=== PATIENT | female | born 1960 | race Hispanic/Latino ===

== ENCOUNTER 2016-11-16 16:34 | Inpatient (IN) | payer BC ==
[2016-11-16 16:35] VITALS: BMI 35.5
[2016-11-16] MEDS ORDERED: Sodium Chloride 0.9% 1,000 ML IV STA (17:32)
[2016-11-16 17:59] LABS: ADD MANUAL DIFF? NO
[2016-11-16 18:02] LABS: BASO # 0.02 K/mm3 (0.0-2.0); BASO % 0.2 % (0.0-3.0); EOS # 0.4 (0.0-0.7); EOS % 3.5 % (1.5-5.0); GRAN # 7.48 (1.4-6.5); GRAN % 75.5 % (50.0-68.0); HEMATOCRIT 42.8 % (36.0-48.0); LYMPH # 1.4 (1.2-3.4); LYMPH % 14.4 % (22.0-35.0); MEAN CELL VOLUME 86.6 fL (80.0-105.0); MEAN CORPUSCULAR HEMOGLOBIN 28.5 pg (25.0-35.0); MEAN CORPUSCULAR HGB CONC 32.9 g/dl (31.0-37.0); MEAN PLATELET VOLUME 10.4 fl (7.0-11.0); MONO # 0.6 (0.1-0.6); MONO % 6.4 % (1.0-6.0); PLATELET COUNT 282 10^3/uL (120.0-450.0); RED CELL DISTRIBUTION WIDTH 14.8 % (11.5-14.5); WHITE BLOOD COUNT 9.9 10^3/ul (4.5-11.0)
[2016-11-16 18:12] LABS: INR 1.02 (0.93-1.08); PARTIAL THROMBOPLASTIN TIME 30.2 Seconds (23.7-30.8)
[2016-11-16 18:18] LABS: ALB/GLOB RATIO 0.9 (1.1-1.8); ALKALINE PHOSPHATASE 169 U/L (38-133); ALT/SGPT 55 U/L (7-56); AST/SGOT 55 U/L (15-39); BILIRUBIN,TOTAL 1.1 mg/dL (0.2-1.3); BLOOD UREA NITROGEN 20 mg/dL (7-21); CALCIUM 10.3 mg/dL (8.4-10.5); CARBON DIOXIDE 12 mmol/L (21-33); CHLORIDE 115 mmol/L (98-107); GFR AFRICAN-AMERICAN 37; GLUCOSE,RANDOM 111 mg/dL (70-110); POTASSIUM 3.7 mmol/L (3.6-5.0); SODIUM 143 mmol/L (132-148); TOTAL PROTEIN 9.9 g/dL (5.8-8.3)
[2016-11-16] MEDS ORDERED: Sodium Chloride 0.9% 1,000 ML IV SCH (18:30)
[2016-11-16 18:32] LABS: TROPONIN I < 0.01 ng/mL
--- NOTE | 2016-11-16 18:32 | ED PDOC ---
Arrival/HPI - General Chief Complaint: GI Problem Time Seen by Provider: 11/16/16 16:36 Historian: Patient - History of Present Illness Narrative History of Present Illness (Text): 11/16/16 19:12 Molly Johnson, a 56 year old female, whose past medical history includes Crohn' s disease, presents to the emergency department complaining of generalized weakness that developed today, as well as feeling dizzy as if she might pass out when she stands or exerts herself. Patient reports that over the past five days she has been having "diarrhea" in her colostomy bag which she describes as "liquid that looks like urine" "every time I eat or drink something it runs right through me. Patient DENIES chest pain or abdominal pain. Denies bloody or dark stool in her colostomy. She has been urinating but "not as much today". Denies chest pain or shortness of breath. She also reports weight loss over the past two weeks. Denies recent antibiotic use aside from Flagyl which she has been taking chronically for several months. Time/Duration: Other (today) Symptom Onset: Sudden Symptom Course: Unchanged Activities at Onset: Rest Context: Home Associated Symptoms (Text): dizziness, loose stools Past Medical History - Provider Review Nursing Documentation Reviewed: Yes - Infectious Disease Hx of Infectious Diseases: None - Tetanus Immunization Tetanus Immunization: Unknown - Reproductive Menopause: Yes - Musculoskeletal/Rheumatological Hx Falls: No - Gastrointestinal Hx Crohn's Disease: Yes - Psychiatric Hx Depression: No Hx Emotional Abuse: No Hx Physical Abuse: No Hx Substance Use: No - Anesthesia Hx Anesthesia: Yes Hx Anesthesia Reactions: No Hx Malignant Hyperthermia: No - Suicidal Assessment Feels Threatened In Home Enviroment: No Family/Social History - Physician Review Nursing Documentation Reviewed: Yes Family/Social History: No Known Family HX Smoking Status: Never Smoked Hx Alcohol Use: No Hx Substance Use: No Hx Substance Use Treatment: No Allergies/Home Meds Allergies/Adverse Reactions: Allergies levofloxacin [From Levaquin] Adverse Reaction (Verified 11/16/16 16:56) PAIN Home Medications: Home Meds Medication Instructions Recorded Confirmed metroNIDAZOLE [Flagyl] 250 mg PO DAILY 05/02/13 11/16/16 Azathioprine [Imuran] 50 mg PO DAILY 09/05/13 11/16/16 Potassium Chloride [Potassium 20 meq PO DAILY 06/16/14 11/16/16 Chloride] Pantoprazole Sodium [Protonix] 40 mg PO DAILY 11/16/16 11/16/16 Review of Systems - Review of Systems Constitutional: Fatigue, Other (generalized weakness) Eyes: absent: Vision Changes Respiratory: absent: SOB, Cough Cardiovascular: absent: Chest Pain Gastrointestinal: Stool Changes (loose stools), Appetite Changes. absent: Abdominal Pain, Nausea, Vomiting, Hematochezia Genitourinary Female: Urine Output Changes. absent: Dysuria, Vaginal Bleeding Musculoskeletal: absent: Back Pain, Neck Pain Skin: absent: Rash Neurological: Dizziness. absent: Headache, Focal Weakness Endocrine: absent: Polyuria Hemo/Lymphatic: absent: Easy Bleeding Physical Exam - Physical Exam Narrative Physical Exam (Text): 11/16/16 19:16 Head: Atraumatic. Normocephalic. Eyes: PERRL. EOMI. Conjunctivae are not pale. ENT: Mucous membranes are dry. Oropharynx is clear and symmetric. Neck: Supple. Full ROM. No JVD. No lymphadenopathy. Cardiovascular: Regular rate. Regular rhythm. No murmurs, rubs, or gallops. Distal pulses are intact. Pulmonary/Chest: No evidence of respiratory distress. Clear to auscultation bilaterally. No wheezing, rales or rhonchi. Abdominal: Soft and non-distended. There is no tenderness. No rebound, guarding, or rigidity. Normoactive bowel sounds. Colostomy with green stool, loose. No surrounding edema or erythema around colostomy. There is soft and reducible hernia. Back: No CVA tenderness. No midline tenderenss. Extremities: No edema. No cyanosis. No clubbing. Full range of motion in all extremities. No calf tenderness. Skin: Skin is warm and dry. No petechiae. No purpura. Neurological: Alert, awake, and oriented. Normal speech. Motor and sensory exam intact. No meningeal signs. Motor and sensory exam intact. Psychiatric: Good eye contact. Normal interaction, affect, and behavior. Vital Signs Reviewed: Yes Vital Signs Temp Pulse Resp BP Pulse Ox 11/16/16 20:21 98.3 F 96 H 18 153/78 H 100 11/16/16 16:48 98.5 F 119 H 20 144/97 H 96 Temperature: Afebrile Blood Pressure: Hypertensive Pulse: Tachycardic Respiratory Rate: Normal Appearance: Positive for: Well-Appearing, Non-Toxic, Comfortable Pain Distress: None Mental Status: Positive for: Alert and Oriented X 3 Finger Stick Blood Glucose: 111 Medical Decision Making ED Course and Treatment: 11/16/16 19:17 Impression: A 56 year old female with generalized weakness after several days of loose stools. Differential Diagnosis include but are not limited to: dehydration, electrolyte distubance, colitis Plan: -- EKG -- Urinalysis -- labs -- IV fluids -- Reassess and disposition Prior Visits: Notes and results from previous visits were reviewed. Patient was last reported to emergency department on 06/16/14 for evaluation of worsening abdominal pain. Patient was hospitalized and cleared for gastroenterology and infectious disease. She was recommended outpatient follow up, to continue medications and follow up with fnps. Patient was discharged on 06/19/14. Progress Notes: Patient on examination has no abdominal pain by history or on exam. On palpation she has no abdominal pain, no focal rebound or guarding. Patient has no bloody stool noted. On re-exam, not tachycardic. Not hypotensive. No associated chest pain or shortness of breath. No focal neuro deficits. No new recent antibiotic usage. IV fluids initiated. Cr elevated when compared to previous. She is noted to have CO2 of 12. K level unremarkable initially. Suspect dehydration, given history of Chrohn's will admit for serial abdominal exams, monitoring of electrolytes and renal consultation. Case d/w Dr. Jones, who has communicated with Dr. Lim, renal. Treatment plan reviewed with patient and family. EKG: at 17:41 sinus tachycardia rate of [address] elevations 11/16/16 22:12 - Lab Interpretations Lab Results: 11/16/16 17:50 11/16/16 17:50 Lab Results 11/16/16 17:50: Sodium 143, Potassium 3.7, Chloride 115 H, Carbon Dioxide 12 L, Anion Gap 20, BUN 20, Creatinine 1.7 H, Est GFR ( Amer) 37, Est GFR (Non- Af Amer) 31, Random Glucose 111 H, Calcium 10.3, Total Bilirubin 1.1, AST 55 H, ALT 55, Alkaline Phosphatase 169 H, Lactate Dehydrogenase 560, Total Creatine Kinase 87, Troponin I < 0.01, Total Protein 9.9 H, Albumin 4.7, Globulin 5.2, Albumin/Globulin Ratio 0.9 L 11/16/16 17:50: PT 11.0, INR 1.02, APTT 30.2 11/16/16 17:50: WBC 9.9 D, RBC 4.94, Hgb 14.1, Hct 42.8, MCV 86.6, MCH 28.5, MCHC 32.9, RDW 14.8 H, Plt Count 282, MPV 10.4, Gran % 75.5 H, Lymph % (Auto) 14.4 L, Stone % (Auto) 6.4 H, Eos % (Auto) 3.5, Baso % (Auto) 0.2, Gran # 7.48 H , Lymph # 1.4, Stone # 0.6, Eos # 0.4, Baso # 0.02 I have reviewed the lab results: Yes - EKG Interpretation Interpreted by ED Physician: Yes Type: 12 lead EKG - Medication Orders Current Medication Orders: Sodium Bicarbonate 75 meq/Potassium Chloride 20 meq/Sodium Chloride 1,085 mls @ 80 mls/hr IV .[id number] [facility] Stop: 11/17/16 20:46 Last Admin: 11/16/16 21:35 Dose: 80 mls/hr Discontinued Medications Sodium Chloride (Sodium Chloride 0.9%) 1,000 mls @ 1,000 mls/hr IV .Q1H [facility] Stop: 11/16/16 18:31 Last Admin: 11/16/16 17:58 Dose: 1,000 mls/hr Sodium Chloride (Sodium Chloride 0.9%) 1,000 mls @ 100 mls/hr IV .Q10H [facility] Last Admin: 11/16/16 20:00 Dose: 100 mls/hr - Scribe Statement The provider has reviewed the documentation as recorded by the Scribcornelio Tarango All medical record entries made by the Stephanieibcornelio were at my direction and personally dictated by me. I have reviewed the chart and agree that the record accurately reflects my personal performance of the history, physical exam, medical decision making, and the department course for this patient. I have also personally directed, reviewed, and agree with the discharge instructions and disposition. Disposition/Present on Arrival - Present on Arrival Any Indicators Present on Arrival: No History of DVT/PE: No History of Uncontrolled Diabetes: No Urinary Catheter: No History of Decub. Ulcer: No History Surgical Site Infection Following: None - Disposition Have Diagnosis and Disposition been Completed?: Yes Diagnosis: Dehydration, Renal insufficiency Disposition: HOSPITALIZED Disposition Time: 19:30 Patient Plan: Admission Condition: FAIR
[2016-11-16 20:53] LABS: URINE BILIRUBIN NEGATIVE (NEGATIVE); URINE BLOOD SMALL (NEGATIVE); URINE GLUCOSE (UA) NEGATIVE (NEGATIVE); URINE KETONE NEGATIVE (NEGATIVE); URINE LEUKOCYTE ESTERASE SMALL Leu/uL (NEGATIVE); URINE PROTEIN 100 mg/dL (<30 mg/dL); URINE UROBILINOGEN 0.2 E.U./dL (<1 E.U./dL)
[2016-11-16 21:00] LABS: URINE APPEARANCE CLEAR (CLEAR); URINE COLOR YELLOW (YELLOW)
[2016-11-16 21:31] LABS: URINE BACTERIA MOD (NEG)
[2016-11-16] MEDS: [UNRECOGNIZED DRUG - OTHER] IV SCH (21:35)
[2016-11-16] MEDS: SODIUM BICARBONATE IV SCH (21:35)
[2016-11-16] MEDS: POTASSIUM CHLORIDE IV SCH (21:35)
[2016-11-17 07:42] LABS: ALB/GLOB RATIO 0.9 (1.1-1.8); BILIRUBIN,TOTAL 1.2 mg/dL (0.2-1.3); CALCIUM 9.1 mg/dL (8.4-10.5); POTASSIUM 3.4 mmol/L (3.6-5.0)
[2016-11-17] MEDS: Pantoprazole 40 mg EC Tab PO SCH (10:10)
--- NOTE | 2016-11-17 10:23 | CARD ---
APPROVED REPORT EKG Measurement Heart [id number] <Conclusion> Sinus tachycardia Minimal voltage criteria for LVH, may be normal variant Septal infarct, age undetermined Abnormal ECG
--- NOTE | 2016-11-17 10:32 | HP ---
HISTORY OF PRESENT ILLNESS: This is a 56-year-old female who presents to [facility] as s he was referred after giving a history of at least 4-5 days of loose watery stools. The patient has a colostomy in the left lower quadrant with a past medical history of Crohn's disease and a history o f a colovesical fistula. She had a temp of 98.5, a pulse of 119, her blood pressure was 144/97, her oxygen saturation was 96% on room air. SOCIAL HISTORY: She is a nonsmoker, nondrinker, nondrug user. ALLERGIES: THERE IS AN ALLERGY TO LEVAQUIN. ACTIVE MEDICATIONS: Consist of Imuran 50 mg daily, Protonix 40 mg daily. She is on sodium bicarbona te with potassium chloride, IV fluids. HOME MEDICATIONS: Consist of Imuran 50 mg daily, Protonix 40 mg daily, potassium chloride 20 mEq cheryle ly and Flagyl 250 mg daily. REVIEW OF SYSTEMS: Twelve systems are reviewed. Pertinent findings is that the colostomy bag has so me liquidy stool present. She denies any pain. PHYSICAL EXAMINATION: NECK: Supple. LUNGS: Clear. HEART: Has an S1, S2 rhythm. ABDOMEN: Soft, scaphoid with positive bowel sounds. There is a colostomy in the left lower quadrant . EXTREMITIES: Show no evidence of edema. NEUROLOGIC: She is alert and oriented x 3. LABORATORY DATA: Shows a WBC of 9.9, RBC 4.94, hemoglobin 14, hematocrit 42.8, platelet count is 282 . PT is 11 with an INR 1.02, PTT is 30.2. Chemistry shows a sodium 143, potassium 3.7, chloride 115 , CO2 is 12. The BUN is 20, the creatinine is 1.7. Her AST is 55, her ALT is normal, the alkaline p hosphatase is 169. Troponin is less than 0.01. LDH is 560. Her calcium is 10.3. Urinalysis shows yeast with moderate bacteria and positive leukocyte esterase. The patient is comfortable at this time in bed. She is going to be seen by GI. Stool for C. diff duenas s been requested, and she has been placed on a liquid diet. Leandra Jones MD cc: [id number] TT: 11/17/2016 10:32:01 mn
[2016-11-17] MEDS ORDERED: Potassium Chloride 20 mEq ER Tab PO ONE (10:47)
[2016-11-17] MEDS: [UNRECOGNIZED DRUG - OTHER] IV SCH (12:00)
[2016-11-17] MEDS: POTASSIUM CHLORIDE IV SCH (12:00)
[2016-11-17] MEDS: SODIUM BICARBONATE IV SCH (12:00)
[2016-11-17] MEDS: Potassium Chloride 20 mEq ER Tab PO SCH (18:26)
--- NOTE | 2016-11-17 18:36 | CON ---
DATE: 11/17/2016 REASON FOR CONSULTATION: Acute kidney injury, hypokalemia, acidosis. HISTORY OF PRESENTING ILLNESS: A 56-year-old young woman, previously unknown to me, was sent to the Emergency Room at the direction of the PMD because of complaints of increased watery stools via the c olostomy. The patient gives a history of increased affluent/watery stools from the colostomy for the past 5 days. Stool was almost like colorless and very liquid. She denies any abdominal pain. She denies any nausea, vomiting. She denies any fever or chills. She gives a history of Crohn's disease , colostomy done 2 years ago, colovesical fistula. She also gives a history of an episode of acute k idney injury 2 years ago. In the Emergency Room she was found to have acute kidney injury. Her BUN was found to be 20 and a cr eatinine of 1.7. Her baseline creatinine 1.1. She was also found to have acidosis. Her CO2 w as 12. Hence, consultation was requested. PAST MEDICAL AND SURGICAL HISTORY: No history of hypertension. No diabetes, no history of heart dis ease. History of Crohn's disease, history of laparotomy x 2, partial bowel resection, colostomy 2 ye ars ago, colovesical fistula, episode of acute kidney injury, gastroenteritis, dehydration. FAMILY HISTORY: Noncontributory. SOCIAL HISTORY: No smoking, no alcohol use, no IV drug abuse. ALLERGIES: LEVAQUIN. MEDICATIONS AT HOME: Included Imuran 50 mg daily, Protonix, potassium chloride, Flagyl 250 mg daily. REVIEW OF SYSTEMS: All systems are reviewed, pertinent positives as mentioned in the history of pres enting illness, rest unremarkable. PHYSICAL EXAMINATION: GENERAL: Obese, middle-aged lady lying in bed, in no acute distress. VITAL SIGNS: Blood pressure 128/77, heart rate 90, respiratory rate 20, temperature 98.5. HEENT: Normocephalic, atraumatic, positive pallor, no icterus. NECK: Supple, no JVD. LUNGS: Bilateral equal air entry. CARDIAC: S1, S2, regular rate and rhythm, no murmur, no rub. ABDOMEN: Obese, distended, soft, left-sided colostomy with brownish liquid stool. Bowel sounds pres ent. EXTREMITIES: No lower extremity edema. LABORATORY DATA: WBC 9.9, hemoglobin 14, hematocrit 43, platelets 282. Sodium 141, potassium 3.4, c hloride 112, CO2 17, BUN 18, creatinine 1.5, glucose 99, calcium 9.1, AST 36, ALT 47, albumin 3.8. ASSESSMENT AND PLAN: 1. Acute kidney injury, prerenal azotemia. 2. Anion gap metabolic acidosis secondary to acute kidney injury and increased losses. 3. Hypokalemia. 4. Dehydration. 5. History of Crohn's disease/colostomy. PLAN: 1. Continue IV fluids with bicarb and potassium. 2. Check magnesium levels. 3. Oral potassium 40 mEq x 1 dose. 4. Potassium 20 mEq b.i.d. 5. Sodium bicarbonate 650 mg b.i.d. 6. Push clear fluids. 7. Needs outpatient followup. Thank you for the courtesy of this consultation. We will follow this patient closely with you. Deanna Lim MD cc: [id number] TT: 11/17/2016 18:35:46 Confirmation # [id number] Dictation # [id number] mn
--- NOTE | 2016-11-17 18:47 | CON ---
DATE: 11/17/2016 Seen and examined at the bedside early today. REQUEST FOR CONSULTATION: Diarrhea, history of colovaginal fistula. HISTORY OF PRESENT ILLNESS: This is a 56-year-old female with a history of Crohn's disease and history of colovesicular fistula. The patient had surgery about 2 years ago with left lower quadrant colostomy now. The patient had the surgery 2 years ago done in [facility]. She comes to the Emergency Room with complaints of increased watery stools that started having diarrhea for the past 5 days. She states that she has had an increase in emptying her colostomy bag. Normally on a regular day she empties her colostomy bag 6 times and now she has noticed it is at least 20 times. The patient states that she is on prophylactic Flagyl, she takes 1 tablet daily. She has been on Flagyl since the surgery as per her GI doctor in [facility]. She denies any new recent antibiotic use except for the Flagyl. She did state that her grandchildren were sick with diarrhea and vomiting. Denies any contributory foods. No reports of any bleeding. Her last endoscopy and colonoscopy were 2 years ago prior to her surgery. Denies any weight loss or loss of appetite. No fever or chills, shortness of breath or chest pain. PAST MEDICAL HISTORY: As stated above, the Crohn's disease and history of colovesicular fistula with colostomy. ALLERGIES: LEVAQUIN. MEDICATIONS: Reviewed as per MAR. SOCIAL HISTORY: Denies smoking, EtOH, or substance abuse. REVIEW OF SYSTEMS: Systems reviewed with positive findings, see HPI. VITAL SIGNS: Temperature is 98.5, blood pressure is 128/77, pulse is 90, respirations 20, 97 on room air. LABORATORY WORK: WBC is 9.9, H and H are 14.1 and 42.8, platelets of 282. PT is 11.0, INR is 1.02, PTT is 30.2. Sodium 141, K is 3.4, BUN is 18, creatinine is 1.5, total bilirubin is 1.2, AST 36, ALT 47, alk phos is 151. Urinalysis is small leukocyte esterase, small blood. Stool for C. diff was sent and that was negative for antigen and toxin. PHYSICAL EXAMINATION: HEENT: Sclerae are anicteric. NECK: Supple. CARDIAC: S1, S2. LUNGS: Clear. ABDOMEN: With bowel sounds, soft, it was nontender. She has a left lower colostomy bag with liquid light brown stool. No blood is noted. EXTREMITIES: Positive pedal pulses, no edema, no calf tenderness. NEUROLOGIC: Awake, alert, and oriented. ASSESSMENT/PLAN: This is a 56-year-old female with the history of Crohn's disease and history of colovesicular fistula status post left lower quadrant colostomy, comes with complaints of diarrhea, may be secondary to viral gastroenteritis. Her stool for C. diff was negative. The patient had contact with the grandkids that were sick with diarrhea and vomiting, likely like a viral gastroenteritis. Dehydration secondary to diarrhea with CAESAR. The patient will continue IV hydration, replace the potassium as necessary. She is on PPI and currently on a liquid diet. Consider advancing as tolerated. Her stool culture is pending as well as a urine culture. Thank you for this consult and for allowing us to participating in your patient' s care. We will make further recommendations based upon patient's clinical course. The patient was seen and case discussed with Dr. Ken. Maria E CORONA cc: [id number] TT: 11/17/2016 18:46:22 Confirmation # [id number] Dictation # [id number] mn ELAINE
[2016-11-17 21:16] VITALS: RESP 20
--- NOTE | 2016-11-17 21:21 | CON ---
DATE: 11/17/2016 ADDENDUM This is an addendum to the GI consultation report dictated by Maria E Gallagher NP. The patient was seen and evaluated. History of Crohn's disease with fistula. The patient has been on long-term treatment with Imuran and Flagyl. 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 Has an acute episode of diarrhea. Clinically, it is more suggestive of acute gastroenteritis on top of the Crohn's disease. The patient did have acute kidney injury, probably secondary to the dehydration also. The patient has been now hydrated and the renal function has been improving and th e also has improved. The plan is to continue the clear liquid diet and slowly increase the t in the a.m. The patient to be followed as an outpatient by his track mechanic in [facility]. Liv Ken MD cc: [id number] TT: 11/17/2016 21:21:07 Confirmation # [id number] Dictation # [id number] mn
--- NOTE | 2016-11-17 22:19 | PN ---
DATE: 11/17/2016 The patient is resting in bed comfortably. Nursing staff relates that there were no problems during the night. PHYSICAL EXAMINATION: VITAL SIGNS: Temp is 98.8, blood pressure is 139/86, oxygen saturation is 96% on room air with a res piratory rate of 20. GENERAL: The patient states that she is not having any abdominal pain and notes that the stool seems to becoming more formed in the colostomy bag. She is alert and oriented x 3. NECK: Supple. LUNGS: Clear. HEART: S1, S2 rhythm. ABDOMEN: Soft with positive bowel sounds. Colostomy in the left lower quadrant. EXTREMITIES: Show no evidence of edema. LABORATORY DATA: Shows a sodium 141, potassium 3.4, chloride 112, CO2 of 17, BUN is 18, creatinine i s 1.5. The magnesium is 1.7. AST is normal, ALT is normal, alkaline phosphatase is 151. The patient had a stool for C. diff which is reported as negative. She is currently on sodium bicarb nito tablets by nephrology along with Protonix 40 mg daily, K-Dur 20 mEq daily. Her IV fluids have been discontinued at this time. She will be seen by GI and we will continue current level of care wi th followup of stool culture and urine culture. Leandra Jones MD cc: [id number] TT: 11/17/2016 22:19:01 Confirmation # [id number] Dictation # [id number] jn
[2016-11-18 07:32] LABS: CALCIUM 8.8 mg/dL (8.4-10.5); POTASSIUM 3.2 mmol/L (3.6-5.0)
[2016-11-18 08:09] VITALS: BP 124/80; TEMP 98.3; O2SAT 97
[2016-11-18] MEDS: Pantoprazole 40 mg EC Tab PO SCH (09:12)
[2016-11-18] MEDS: Potassium Chloride 20 mEq ER Tab PO SCH ×2 (09:12→17:12)
--- NOTE | 2016-11-18 13:21 | PN ---
DATE: 11/18/2016 Seen and examined at the bedside earlier today. The patient reports less output on colostomy. She o nly emptied it out 3 times. The patient still with loose stools via colostomy, but states this is im proving. She did report that she noticed some blood near the stoma when she was changing her wafer. No bleeding noted now. Denies nausea, vomiting, or abdominal pain. VITAL SIGNS: Temperature is 98.3, blood pressure 124/80, pulse 80, respirations 20, 97 O2 saturation . LABORATORY DATA: Today, sodium 141, K is 3.2, BUN is 13, creatinine is 1.2. This is improved. PHYSICAL EXAMINATION: HEENT: Sclerae are anicteric. NECK: Supple. CARDIAC: S1, S2. LUNGS: Clear. ABDOMEN: With bowel sounds, soft. No tenderness appreciated in abdomen. No rebound or guarding. P ositive colostomy with pink stoma, did not note any blood near the stoma or in the colostomy bag. Th ere is watery stool that appears light brown. ASSESSMENT: History of Crohn's disease with colovaginal fistula, status post colostomy, came with de hydration and acute kidney injury which is improved. Likely, the patient has viral gastroenteritis. She is also noted to be hypokalemic. PLAN: We will replace her potassium as necessary. Tolerated the clear liquids. She is not having a ny abdominal pain. We will advance her diet to a diarrhea management diet. Continue the PPI and esther harrell will be discharged home today. She is going to follow up with her GI doctor, Joe pastor. Did have an appointment in December, but going to contact them for a sooner appointment. The patien t was seen and case discussed with Dr. Ken. Maria E Brittes CHLOE cc: [id number] TT: 11/18/2016 13:20:16 Confirmation # [id number] Dictation # [id number] meredith
[2016-11-18 14:09] VITALS: PULSE 94
--- NOTE | 2016-11-18 23:21 | PN ---
DATE: 11/18/2016 SUBJECTIVE: The patient is seen lying in bed. She is awake, alert, looks comfortable. She denies any nausea, vomiting. She did report that diarrhea has decreased. She denies any abdominal pain. PHYSICAL EXAMINATION: GENERAL: Obese, middle-aged lady lying in bed. VITAL SIGNS: Blood pressure 124/74, heart rate 74, respiratory rate 18, temperature 98. HEENT: Normocephalic, atraumatic. NECK: Supple, no JVD. LUNGS: Bilateral equal air entry, no rales. CARDIAC: S1, S2, regular rate and rhythm, no murmur or rub. ABDOMEN: Obese, distended, soft, nontender, positive colostomy. EXTREMITIES: No lower extremity edema. LABORATORY DATA: Sodium 140, potassium 3.2, CO2 22, BUN 24, creatinine 1.2. CURRENT MEDICATIONS: List reviewed. ASSESSMENT AND PLAN: 1. Acute kidney injury. 2. Underlying chronic kidney disease suspect. 3. Hypokalemia. 4. Resolving metabolic acidosis. 5. Crohn's disease, history of partial colectomy, colostomy, colovesical fistula. PLAN: 1. Continue potassium 20 mEq b.i.d. 2. Potassium 40 mEq p.o. x 1 dose. 3. Continue sodium bicarbonate 650 mg b.i.d. 4. Push p.o. fluids. 5. No objection to discharge. Deanna Lim MD cc: [id number] TT: 11/18/2016 23:20:50 Confirmation # [id number] Dictation # [id number] danielle HENRY
--- NOTE | 2016-12-06 11:47 | DS ---
This is a 56-year-old female admitted to [facility] with a long history of watery stools and trace of blood in the stool. She had a colostomy. The patient has a history of Crohn's disease with colovesical fistula, being followed by a hr specialist in [facility]. She underwent a c olostomy more than a year ago with plans for awaiting resolution of the fistula. She has a history o f hypokalemia and was seen in the hospital by the GI, Dr. Ken, and by renal for a mild elevation of her renal function. She had an elevated chloride and a BUN that was normal. Alk phos was 169, w as trending downward on discharge at 151. She would be followed as an outpatient by her GI doctors w bita were following the patient. She would hold on her Imuran therapy at this time. Continue Protonix 40 mg daily. She will be on potassium chloride 20 mEq daily, sodium bicarb tablets 650 t.i.d. and s he would continue her Flagyl therapy as per the GI people in [place]. Leandra Jones MD cc: [id number] TT: 12/06/2016 11:46:38 nh
== END 2016-11-18 17:47 | disposition home or self-care (01) | DRG 683 ==
LOC: ED 16:34 → ERH 20:16 → 3RSO 22:25
PROVIDERS: ADMIT Internal Medicine; ATTEND Internal Medicine
DX: N17.9 Acute kidney failure, unspecified (principal); E86.0 Dehydration; A08.4 Viral intestinal infection, unspecified; K50.913 Crohn's disease, unspecified, with fistula; E87.2 Acidosis; N32.1 Vesicointestinal fistula; E87.6 Hypokalemia; Z88.1 Allergy status to other antibiotic agents; Z93.3 Colostomy status